=== PATIENT | female | born 1960 | race Caucasian/White ===

== ENCOUNTER → 2023-02-18 14:21 | Outpatient (CLI) | payer BC, SELFPAY ==
--- NOTE | 2023-02-18 14:37 | CA_ITS ---
FINAL REPORT TECHNIQUE: Ultrasound images of the deep venous system were obtained from the left groin to the calf veins. CLINICAL HISTORY: LT FOOT/LOWER LEG SWELLING X SEVERAL DAYS,PT RECEIVED LOVENOX SHOT YESTERDAY FINDINGS: The deep venous system is normally compressible. Normal flow is identified. IMPRESSION: No evidence of left lower extremity DVT. Reviewed, Interpreted and Dictated by Nishant Villarreal MD Transcribed by Mag Bhagat Authenticated and . [facility]
== END ==
PROVIDERS: PCP Internal Medicine
DX: R60.0 Localized edema (principal); M79.662 Pain in left lower leg
CPT/HCPCS: 93971